=== PATIENT | female | born 1990 | race Caucasian/White ===

== ENCOUNTER 2018-04-12 00:10 | Emergency (ER) | payer OTHER ==
[~2018-04-12] VITALS: Ht 170.2 cm; Wt 77.2 kg
[2018-04-12] MEDS ORDERED: ondansetron/PF 4mg/2ml inj IV ONE (00:45)
[2018-04-12] MEDS ORDERED: normal saline 1000ml 1,000 ML IV ONE ×2 (00:45→01:25)
[2018-04-12] MEDS ORDERED: thiamine 100mg/ml 2ml inj. IV ONE (01:25)
[2018-04-12] MEDS ORDERED: LORazepam 2 mg/ml vial IV ONE (01:25)
[2018-04-12 01:44] LABS: CLARITY,URINE CLOUDY (Clear); COLOR,URINE AMBER (Yellow); GLUCOSE, URINE NEGATIVE (Neg); KETONES,URINE >=80 mg/dl (Neg); LEUKOCYTE ESTERASE ,URINE NEGATIVE (Neg); PH,URINE 6.5 (4.8-8.0); PROTEIN,URINE >=300 mg/dl (Neg)
[2018-04-12 01:45] LABS: URINE HCG NEGATIVE (NEG)
[2018-04-12 01:51] LABS: NITRITES, URINE NEGATIVE (Neg); OCCULT BLOOD,URINE MODERATE (Neg)
[2018-04-12 01:52] LABS: UA COLLECTION TYPE CLN CATCH MIDSTREAM
[2018-04-12 01:59] LABS: ALANINE AMINOTRANSFERASE 109 U/L (12-78); ALBUMIN 3.7 G/DL (3.4-5.0); ALBUMIN/GLOBULIN RATIO 0.9 (1.1-1.5); ALKALINE PHOSPHATASE 117 IU/L (46-116); ANION GAP 18 (8-16); ASPARTATE AMINO TRANSFERASE 106 U/L (10-37); BILIRUBIN,TOTAL 1.2 MG/DL (0.1-1.0); BLOOD UREA NITROGEN 6 MG/DL (7-18); BUN/CREATININE RATIO 6.1 (6.6-38.0); CHLORIDE 107 MMOL/L (99-107); CREATININE 0.99 MG/DL (0.40-0.90); GLUCOSE 152 MG/DL (70-104); POTASSIUM 3.4 MMOL/L (3.5-5.1); SODIUM 145 MMOL/L (135-145); TOTAL CARBON DIOXIDE 19.8 MMOL/L (24-32); TOTAL PROTEIN 7.7 G/DL (6.4-8.2); eGFR 67 ML/MIN
[2018-04-12 02:01] LABS: URINE AMPHETAMINE SCREEN NEGATIVE (Neg); URINE BARBITUATE SCREEN NEGATIVE (Neg); URINE BENZODIAZEPINES SCREEN NEGATIVE (Neg); URINE CANNABINOID SCREEN NEGATIVE (Neg); URINE COCAINE SCREEN NEGATIVE (Neg); URINE METHADONE SCREEN NEGATIVE (Neg); URINE OPIATE SCREEN NEGATIVE (Neg); URINE PHENCYCLIDINE SCREEN NEGATIVE (Neg)
[2018-04-12 02:03] LABS: ETHANOL < 0.010 GM/DL (0.0-0.010)
[2018-04-12 02:05] LABS: BACTERIA,URINE FEW /HPF (Neg); RBC,URINE TNTC /HPF (0-2); SQUAMOUS EPITHELIAL CELL,UR FEW /LPF (FEW); WBC,URINE 0-4 /HPF (0-4)
[2018-04-12 02:08] LABS: BASOPHILS % (AUTO) 0.2 % (0-1); EOSINOPHILS % (AUTO) 0 % (0-6); HEMATOCRIT 50.4 % (35.0-45.0); HEMOGLOBIN 17.3 g/dl (12.0-16.0); LYMPHOCYTES # (AUTO) 0.2 X10'3 (1.1-4.8); LYMPHOCYTES % (AUTO) 2.5 % (21-51); MEAN CORPUSCULAR HEMOGLOBIN 34.7 PG (27.0-31.0); MEAN CORPUSCULAR HGB CONC 34.3 % (33.0-36.5); MEAN CORPUSCULAR VOLUME 101.1 FL (78-98); MEAN PLATELET VOLUME 11.3 FL (7.4-10.4); MONOCYTES # (AUTO) 1.2 X10'3 (0-0.9); MONOCYTES % (AUTO) 13.7 % (2-12); NEUTROPHILS # (AUTO) 7.2 X10'3 (1.8-7.7); NEUTROPHILS % (AUTO) 83.6 % (42-75); PLATELET COUNT 142 X10'3 (140-440); RED BLOOD COUNT 4.99 X10'6 (4.20-5.60); RED CELL DISTRIBUTION WIDTH 13.2 % (11.5-14.5); WHITE BLOOD COUNT 8.7 X10'3 (4.5-11.0)
[2018-04-12] MEDS ORDERED: dextrose 5%-normal saline 1,000 ML IV SCH (02:15)
[2018-04-12] MEDS ORDERED: CHLO25CA10 PO (03:26)
[2018-04-12 03:54] VITALS: BP 109/58
== END 2018-04-12 03:57 | disposition home or self-care (01) ==
LOC: ER 00:13
DX: E87.2 Acidosis (principal); K70.9 Alcoholic liver disease, unspecified; F10.239 Alcohol dependence with withdrawal, unspecified; J45.909 Unspecified asthma, uncomplicated
CPT/HCPCS: 36415; 80053; 80305; 80320; 81001; 81025; 85025; 96361; 96374; 96375; 99284; J2060; J2405; J3411; J7030; J7042; 96365

== ENCOUNTER 2019-04-11 04:59 | Emergency (ER) | payer OTHER ==
[~2019-04-11] VITALS: Ht 170.2 cm; Wt 74.3 kg
[~2019-04-11 04:59] MED LIST: CHLO25CA10 PO
[2019-04-11] MEDS ORDERED: normal saline 1000ML IV soln IVB ONE (05:30)
[2019-04-11 05:43] LABS: URINE HCG NEGATIVE (NEG)
[2019-04-11 05:48] LABS: RED CELL DISTRIBUTION WIDTH 15.5 % (11.5-14.5)
[2019-04-11 05:49] LABS: EOSINOPHILS # (AUTO) 0.1 X10'3 (0-0.9)
[2019-04-11 05:52] LABS: HEMOGLOBIN 17.9 g/dl (12.0-16.0); MONOCYTES # (AUTO) 1.1 X10'3 (0-0.9); MONOCYTES % (AUTO) 11.3 % (2-12)
[2019-04-11 05:53] LABS: CLARITY,URINE CLOUDY (Clear); COLOR,URINE YELLOW (Yellow); GLUCOSE, URINE NEGATIVE (Neg); KETONES,URINE NEGATIVE (Neg); LEUKOCYTE ESTERASE ,URINE NEGATIVE (Neg); OCCULT BLOOD,URINE MODERATE (Neg); PH,URINE 5.5 (4.8-8.0); PROTEIN,URINE TRACE mg/dl (Neg)
[2019-04-11 05:54] LABS: BASOPHILS % (AUTO) 0.4 % (0-1); EOSINOPHILS % (AUTO) 1.5 % (0-6); HEMATOCRIT 51.8 % (35.0-45.0); LYMPHOCYTES # (AUTO) 0.9 X10'3 (1.1-4.8); LYMPHOCYTES % (AUTO) 9.5 % (21-51); MEAN CORPUSCULAR HEMOGLOBIN 37.1 PG (27.0-31.0); MEAN CORPUSCULAR HGB CONC 34.5 g/dL (33.0-36.5); MEAN CORPUSCULAR VOLUME 107.8 FL (78-98); MEAN PLATELET VOLUME 10.2 FL (7.4-10.4); NEUTROPHILS # (AUTO) 7.6 X10'3 (1.8-7.7); NEUTROPHILS % (AUTO) 77.3 % (42-75); PLATELET COUNT 210 X10'3 (140-440); RED BLOOD COUNT 4.81 X10'6 (4.20-5.60); WHITE BLOOD COUNT 9.9 X10'3 (4.5-11.0)
[2019-04-11 05:59] LABS: ALANINE AMINOTRANSFERASE 192 U/L (12-78); ALBUMIN 3.6 G/DL (3.4-5.0); ALBUMIN/GLOBULIN RATIO 0.9 (1.1-1.5); ALKALINE PHOSPHATASE 138 IU/L (46-116); ANION GAP 11 (8-16); ASPARTATE AMINO TRANSFERASE 316 U/L (10-37); BILIRUBIN,TOTAL 1.1 MG/DL (0.1-1.0); BLOOD UREA NITROGEN 8 MG/DL (7-18); CALCIUM 9.9 MG/DL (8.5-10.1); CHLORIDE 101 MMOL/L (99-107); CREATININE 0.73 MG/DL (0.40-0.90); GLUCOSE 109 MG/DL (70-104); LIPASE 269 U/L (73-393); POTASSIUM 3.7 MMOL/L (3.5-5.1); SODIUM 136 MMOL/L (135-145); TOTAL PROTEIN 7.8 G/DL (6.4-8.2); eGFR > 90 ML/MIN
[2019-04-11 06:01] LABS: UA COLLECTION TYPE CLN CATCH MIDSTREAM
[2019-04-11 06:02] LABS: NITRITES, URINE NEGATIVE (Neg)
[2019-04-11 06:03] LABS: AMORPHOUS URATES 4+; BACTERIA,URINE FEW /HPF (Neg); RBC,URINE 0-2 /HPF (0-2); SQUAMOUS EPITHELIAL CELL,UR FEW /LPF (FEW); URIC ACID CRYSTALS FEW /HPF (NEGATIVE); WBC,URINE NONE SEEN /HPF (0-4)
[2019-04-11 06:09] LABS: INR 1.1 INR
--- NOTE | 2019-04-11 06:30 | NUR ---
PT DENIES NAUSEA
--- NOTE | 2019-04-11 06:45 | NUR ---
REQUESTED ADDITIONAL URINE SPECIMAN
[2019-04-11] MEDS ORDERED: PHEN-716 PO (06:48)
[2019-04-11 07:01] VITALS: BP 147/92
== END 2019-04-11 07:08 | disposition home or self-care (01) ==
LOC: ER 05:00
DX: R10.30 Lower abdominal pain, unspecified (principal); E86.0 Dehydration; R74.0 Nonspecific elevation of levels of transaminase and lactic acid dehydrogenase [LDH]; R30.0 Dysuria; R11.10 Vomiting, unspecified; J45.909 Unspecified asthma, uncomplicated; Z79.899 Other long term (current) drug therapy
CPT/HCPCS: 36415; 80053; 81001; 81025; 83690; 85025; 85610; 87491; 87591; 99283; J7030

== ENCOUNTER 2019-04-19 23:03 | Emergency (ER) | payer MEDICAID, OTHER ==
[~2019-04-19] VITALS: Ht 170.2 cm; Wt 74.0 kg
[~2019-04-19 23:03] MED LIST changes: +PHEN-716 PO
[2019-04-19] MEDS ORDERED: LORazepam 2 mg/ml vial IV ONE (23:25)
[2019-04-19] MEDS ORDERED: normal saline 1000ML IV soln IVB ONE (23:25)
[2019-04-19 23:44] LABS: BASOPHILS # (AUTO) 0.1 X10'3 (0-0.2); BASOPHILS % (AUTO) 1.1 % (0-1); EOSINOPHILS # (AUTO) 0.1 X10'3 (0-0.9); EOSINOPHILS % (AUTO) 1.5 % (0-6); HEMATOCRIT 48.4 % (35.0-45.0); HEMOGLOBIN 16.6 g/dl (12.0-16.0); LYMPHOCYTES # (AUTO) 1.3 X10'3 (1.1-4.8); LYMPHOCYTES % (AUTO) 16.6 % (21-51); MEAN CORPUSCULAR HEMOGLOBIN 36.8 PG (27.0-31.0); MEAN CORPUSCULAR HGB CONC 34.3 g/dL (33.0-36.5); MEAN CORPUSCULAR VOLUME 107.3 FL (78-98); MEAN PLATELET VOLUME 9.7 FL (7.4-10.4); MONOCYTES # (AUTO) 1.2 X10'3 (0-0.9); MONOCYTES % (AUTO) 14.7 % (2-12); NEUTROPHILS # (AUTO) 5.2 X10'3 (1.8-7.7); NEUTROPHILS % (AUTO) 66.1 % (42-75); PLATELET COUNT 222 X10'3 (140-440); RED BLOOD COUNT 4.51 X10'6 (4.20-5.60); RED CELL DISTRIBUTION WIDTH 15.4 % (11.5-14.5); WHITE BLOOD COUNT 7.9 X10'3 (4.5-11.0)
[2019-04-20 00:12] LABS: CALCIUM 10.3 MG/DL (8.5-10.1)
[2019-04-20 00:22] LABS: ALBUMIN 3.6 G/DL (3.4-5.0); ALBUMIN/GLOBULIN RATIO 0.9 (1.1-1.5); ANION GAP 14 (8-16); BILIRUBIN,TOTAL 0.8 MG/DL (0.1-1.0); BLOOD UREA NITROGEN 6 MG/DL (7-18); BUN/CREATININE RATIO 8.6 (6.6-38.0); CHLORIDE 99 MMOL/L (99-107); GLUCOSE 96 MG/DL (70-104); POTASSIUM 3.7 MMOL/L (3.5-5.1); SODIUM 136 MMOL/L (135-145); TOTAL CARBON DIOXIDE 22.6 MMOL/L (24-32); TOTAL PROTEIN 7.6 G/DL (6.4-8.2); eGFR > 90 ML/MIN
[2019-04-20 00:23] LABS: ALANINE AMINOTRANSFERASE 102 U/L (12-78); ALKALINE PHOSPHATASE 109 IU/L (46-116); ASPARTATE AMINO TRANSFERASE 119 U/L (10-37); LIPASE 145 U/L (73-393)
[2019-04-20 00:34] VITALS: BP 138/84
[2019-04-20] MEDS ORDERED: ONDA4TAB6 PO (00:35)
== END 2019-04-20 01:27 | disposition home or self-care (01) ==
LOC: ER 23:04
DX: K92.0 Hematemesis (principal); F10.20 Alcohol dependence, uncomplicated; R20.0 Anesthesia of skin; J45.909 Unspecified asthma, uncomplicated
CPT/HCPCS: 36415; 80053; 83690; 85025; 96361; 96374; 99283; J2060; J7030

== ENCOUNTER 2021-04-27 10:01 | Emergency (ER) | payer MEDICAID ==
[~2021-04-27] VITALS: Ht 170.2 cm; Wt 81.8 kg
[~2021-04-27 10:01] MED LIST changes: +ONDA4TAB6 PO
[2021-04-27] MEDS ORDERED: ondansetron/PF 4mg/2ml inj IV ONE ×2 (10:50→13:55)
[2021-04-27] MEDS ORDERED: thiamine 100mg tablet PO ONE (10:50)
[2021-04-27] MEDS ORDERED: phenobarbital inj 260 MG in normal saline 100ml IV soln 100 ML IV ONE (10:50)
[2021-04-27] MEDS ORDERED: magnesium oxide 400mg tablet PO ONE (10:50)
[2021-04-27] MEDS ORDERED: normal saline 1000ML IV soln IVB ONE (10:50)
[2021-04-27 11:16] LABS: BASOPHILS % (AUTO) 0.4 % (0-1); EOSINOPHILS # (AUTO) 0.1 X10'3 (0-0.9); EOSINOPHILS % (AUTO) 0.9 % (0-6); HEMATOCRIT 34.4 % (35.0-45.0); HEMOGLOBIN 10.9 g/dl (12.0-16.0); LYMPHOCYTES # (AUTO) 2.2 X10'3 (1.1-4.8); LYMPHOCYTES % (AUTO) 17.9 % (21-51); MEAN CORPUSCULAR HEMOGLOBIN 26.1 PG (27.0-31.0); MEAN CORPUSCULAR HGB CONC 31.8 g/dL (33.0-36.5); MEAN PLATELET VOLUME 8.6 FL (7.4-10.4); MONOCYTES # (AUTO) 1.6 X10'3 (0-0.9); MONOCYTES % (AUTO) 12.8 % (2-12); NEUTROPHILS # (AUTO) 8.5 X10'3 (1.8-7.7); PLATELET COUNT 270 X10'3 (140-440); RED BLOOD COUNT 4.19 X10'6 (4.20-5.60); RED CELL DISTRIBUTION WIDTH 20.5 % (11.5-14.5); WHITE BLOOD COUNT 12.5 X10'3 (4.5-11.0)
[2021-04-27 11:34] LABS: ALANINE AMINOTRANSFERASE 71 U/L (12-78); ALBUMIN 3.7 G/DL (3.4-5.0); ALBUMIN/GLOBULIN RATIO 0.8 (1.1-1.5); ALKALINE PHOSPHATASE 159 IU/L (46-116); ANION GAP 21 (8-16); ASPARTATE AMINO TRANSFERASE 211 U/L (10-37); BILIRUBIN,TOTAL 0.4 MG/DL (0.1-1.0); CALCIUM 8.8 MG/DL (8.5-10.1); CHLORIDE 101 MMOL/L (99-107); ETHANOL 0.121 GM/DL (0.0-0.010); GLUCOSE 125 MG/DL (70-104); MAGNESIUM 1.8 MG/DL (1.5-2.4); POTASSIUM 3.6 MMOL/L (3.5-5.1); SODIUM 141 MMOL/L (135-145); TOTAL CARBON DIOXIDE 19.5 MMOL/L (24-32); TOTAL PROTEIN 8.4 G/DL (6.4-8.2)
[2021-04-27 12:03] LABS: BLOOD UREA NITROGEN 3 MG/DL (7-18); BUN/CREATININE RATIO 4.2 (6.6-38.0); CREATININE 0.71 MG/DL (0.40-0.90); eGFR > 90 ML/MIN
[2021-04-27] MEDS ORDERED: phenobarbital inj 130 MG in normal saline 100ml IV soln 100 ML IV ONE (12:20)
[2021-04-27 14:25] VITALS: BP 114/87
== END 2021-04-27 14:26 | disposition home or self-care (01) ==
LOC: ER 10:01
DX: F10.230 Alcohol dependence with withdrawal, uncomplicated (principal); J45.909 Unspecified asthma, uncomplicated; Y90.9 Presence of alcohol in blood, level not specified
CPT/HCPCS: 80053; 80320; 83735; 85025; 93005; 96365; 96375; 96376; 99284; J2405; J2560; J7030

== ENCOUNTER 2024-10-27 08:31 | Outpatient (CLI) | payer BC | END 2024-10-27 23:59 | disposition home or self-care (01) | LOC: US 08:31 | PROVIDERS: ATTEND Nurse Practitioner Family | DX: K76.89 Other specified diseases of liver (principal); F10.11 Alcohol abuse, in remission; Z90.49 Acquired absence of other specified parts of digestive tract; Z87.19 Personal history of other diseases of the digestive system | CPT/HCPCS: 76700 ==

== ENCOUNTER 2025-09-06 05:12 | Emergency (ER) | payer BC ==
[~2025-09-06] VITALS: Ht 170.2 cm; Wt 64.5 kg
[2025-09-06 05:16] VITALS: TEMP 97.7
[2025-09-06 05:59] LABS: MEAN PLATELET VOLUME 10.2 FL (7.4-10.4); RED CELL DISTRIBUTION WIDTH 13.3 % (11.5-14.5)
--- NOTE | 2025-09-06 06:02 | Physician Documentation ---
History of Present Illness ~ Chief Complaint: Diarrhea Stated Complaint: DIARRHEA Time Seen by MD: 05:35 Primary Medical Doctor: none Source: patient Mode of Arrival: POV, Ambulatory Exam Limitations: no limitations HPI Chief Complaint: Diarrhea Caveat: None Independent Historians: History of Present Illness: Patient is a 35-year-old woman who comes in complaining of diarrhea nonstop for three days. Patient is having multiple episodes of diarrhea a day. It is watery, brown. No fever. Patient had some nausea yesterday. No vomiting. Patient has had shaking chills. No recent travel. No known sick contacts. Patient's CAT has also had diarrhea. Review of systems: All systems were reviewed and are negative except for what is indicated in the history of present illness. 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, sober for four years Medications: Reviewed as documented Nursing Notes Allergies: Reviewed as documented in Nursing Notes Medication Reconciliation Allergies: Coded Allergies: No Known Allergies (Unverified , 04/12/18) Scheduled Ondansetron Hcl (Zofran), 1 TAB PO Q8H Phenazopyridine HCl (Pyridium), 1 TAB PO Q8H Scheduled PRN Chlordiazepoxide Hcl (Librium), 25 MG PO Q8HPRN PRN for alcohol withdrawal Past Medical History Past Medical History: Asthma Past Surgical History: noncontributory Alcohol Use: Alcoholic Drug Use: none Lives In: Home Review of Systems All Other Systems at this time: Reviewed and Negative ROS Patient denies any other acute symptoms other than above. All other systems are negative Physical Exam Vital Signs: RN Vital Signs have been reviewed: Yes, Temperature: 97.7, Source: Oral, Heart Rate: 91, Respiratory Rate: 14, BP: 121/64, Pulse Oximetry: 99, Weight: 64.550 Oxygen Flow Rate: 0 Pulse Oximetry Reflects: adequate oxygenation Physical Exam General Appearance: Mild distress HEENT: Normal OP, moist oral mucosa, PERRL, EOMI Neck: supple, normal ROM, trachea midline Pulmonary: No respiratory distress, CTA, BS equal Cardiac: RRR, no murmur, rub or gallop, GI: nondistended, soft, nontender, normal bowel sounds, no guarding, no rebound Extremities: normal ROM, no swelling, non-tender Skin: intact, dry, warm, no rashes Neuro: AAOx3, speech is clear, no focal motor weakness Psych: normal affect, good eye contact, no apparent hallucination, normal speech Progress Results/Orders Results/Orders Orders - NATALIA LONG MD Cult Stool (Enteric Pathogens) (09/06/25 05:58) Wrights Stain For Stool Wbcs (09/06/25 05:58) Completed Orders - NATALIA LONG MD Urinalysis, Cult If Indicated (09/06/25 05:21) Hcg, Ur Ql (09/06/25 05:21) Cbc/Diff (09/06/25 05:21) Lipase (09/06/25 05:21) CMP (09/06/25 05:21) Ringers Solution, Lacted (Lactated Ringe (09/06/25 06:00) C Diff Toxin (09/06/25 05:58) MG (09/06/25 05:48) Man Diff (09/06/25 05:48) Potassium Cl 20meq In D5-1/2ns (Kcl 20 M (09/06/25 07:25) Potassium Cl Sr Tablet (K-Dur Tablet) (09/06/25 07:43) Medications Received in ER Medications (Trade) Dose Ordered Sig/Gema Route PRN Reason Start Time Stop Time Status Last Admin Dose Admin (lactated ringers solution) 2,000 ml ONCE ONCE IV 09/06/25 06:00 09/06/25 06:01 DC 09/06/25 06:05 2,000 ML (K-DUR tablet) 40 meq ONCE STAT PO 09/06/25 07:43 09/06/25 07:45 DC 09/06/25 08:08 40 MEQ Vital Signs 09/06/25 09/06/25 09/06/25 09/06/25 05:16 05:53 06:18 08:41 Temp 97.7 Pulse 91 78 84 Resp 16 14 16 16 B/P (MAP) 121/64 109/74 (86) 102/66 Pulse Ox 99 100 99 O2 Flow Rate 0 0 Laboratory Tests Test 09/06/25 05:48 09/06/25 06:36 White Blood Count 6.7 Red Blood Count 4.97 Hemoglobin 15.1 Hematocrit 44.3 Mean Corpuscular Volume 89.1 Mean Corpuscular Hemoglobin 30.3 Mean Corpuscular Hemoglobin Concent 34.0 Red Cell Distribution Width 13.3 Platelet Count 200 Mean Platelet Volume 10.2 Neutrophils (%) (Auto) 71.3 Lymphocytes (%) (Auto) 10.2 L Monocytes (%) (Auto) 16.3 H Eosinophils (%) (Auto) 1.8 Basophils (%) (Auto) 0.4 Neutrophils # (Auto) 4.8 Lymphocytes # (Auto) 0.7 L Monocytes # (Auto) 1.1 H Eosinophils # (Auto) 0.1 Basophils # (Auto) 0.0 CBC Comment Differential Total Cells Counted 100 Neutrophils % (Manual) 70.0 Lymphocytes % (Manual) 14.0 L Monocytes % (Manual) 16.0 H Platelet Estimate Normal Red Blood Cell Morphology Normal Basophilic Stippling Sodium Level 139 Potassium Level 3.1 L Chloride Level 106 Carbon Dioxide Level 22.8 L Anion Gap 10 Blood Urea Nitrogen 7 Creatinine 0.82 Estimated GFR/1.73 m2 79 BUN/Creatinine Ratio 8.5 L Glucose Level 81 Calcium Level 8.5 Magnesium Level 1.8 Total Bilirubin 0.2 Aspartate Amino Transf (AST/SGOT) 24 Alanine Aminotransferase (ALT/SGPT) 32 Alkaline Phosphatase 47 Total Protein 7.8 Albumin 3.8 Globulin 4.0 Albumin/Globulin Ratio 1.0 L Lipase 21 Chemistry Comments Urine Specimen Description Cln catch midstream Urine Color Yellow Urine Clarity Clear Urine pH 6.0 Urine Specific [place] <=1.005 Urine Protein Negative Urine Glucose (UA) Negative Urine Ketones Negative Urine Occult Blood Negative Urine Nitrite Negative Urine Bilirubin Negative Urine Urobilinogen 0.2 Urine Leukocyte Esterase Negative Urine Culture Indicated Not ind Volume Urine Centrifuged 10 ml Urine HCG, Qualitative Negative Urine Comment Clostridium Difficile Toxin A & B Negative Clostridium difficile Antigen Negative Microbiology Date/Time Source Procedure Growth Status 09/06/25 06:36 Stool WBC Smear - Final Resulted 09/06/25 06:36 Stool Stool Culture Pending Resulted Medical Decision Making Additional info obtained from: old records Findings Differential diagnosis includes but is not limited to: Viral enteritis, bacterial enteritis, C diff colitis, Giardia, dehydration, electrolyte abnormalities Laboratory data independent interpretation: CBC: Unremarkable, differential shows low lymphocytes 14% and high monocytes 16%. CMP: Hypokalemia with a potassium of 3.1, bicarb is mildly low at 22.8 Urine : Negative Urinalysis: Unremarkable Lee Stain: Negative for white blood cells C diff toxin: Negative Emergency department course/medical decision-making: Patient is a 35-year-old woman who comes in with severe persistent diarrhea for three days. Cause is unknown. Lee's stain is negative for white blood cells. C diff is pending. Patient is given 2 L of LR. Patient is also mildly hypokalemic. Patient is given 40 mEq p.o.. Patient did not want the IV potassium. Patient is feeling a little better and just fatigued. It is safe for the patient to try to continue the Imodium test results and treatment plan reviewed with the patient. Patient was mildly dehydrated. No evidence of a medical or surgical emergency at this time. Patient is stable for discharge. C diff is pending if it is positive she will be called and started on vancomycin. C diff toxin is negative. Diff Dx GI Bleed:Consideration: Include: Other (See above) Diff Dx Pain:Considerations: Include: Other (See above) Diff Dx N/V/D:Considerations: Include: Other Diff Dx Rectal:Considerations: Include: Other (See above) Departure Time of Disposition: 08:34 Disposition: 01 HOME / SELF CARE / HOMELESS Impression: Primary Impression: Diarrhea Qualified Codes: R19.7 - Diarrhea, unspecified Additional Impressions: Dehydration Hypokalemia Condition: Improved Discharge Instructions: Dehydration, Adult, [id number], Diarrhea, Adult, Hypokalemia Additional Instructions: RETURN TO THE ER IF YOUR SYMPTOMS WORSEN. Education Educated: Patient Educated regarding: diagnosis, treatment, need for follow up Signature Scribe Signature: No scribe Attestation: No scribe NATALIA LONG MD Sep 06, 2025 06:02
[2025-09-06] MEDS: ringers solution, lactated 1000ml IV soln IV ONE (06:05)
[2025-09-06 06:12] LABS: CREATININE 0.82 MG/DL (0.40-0.90); TOTAL CARBON DIOXIDE 22.8 MMOL/L (24-32); eCRCL 93 ML/MIN; eGFR 79 ML/MIN
[2025-09-06 06:45] LABS: LEUKOCYTE ESTERASE ,URINE NEGATIVE (Neg); NITRITES, URINE NEGATIVE (Neg); OCCULT BLOOD,URINE NEGATIVE (Neg)
[2025-09-06 06:57] LABS: URINE HCG NEGATIVE (NEG)
[2025-09-06 07:06] LABS: UA COLLECTION TYPE CLN CATCH MIDSTREAM
[2025-09-06] MEDS ORDERED: D5-1/2NS w/20 mEq potassium per 1000ml IV ONE (07:10)
[2025-09-06] MEDS ORDERED: potassium CL 20mEq in D5-1/2NS 1,000 ML IV ONE (07:25)
[2025-09-06 07:56] LABS: LYMPHOCYTES % (MANUAL) 14.0 % (21-51); MONOCYTES % (MANUAL) 16.0 % (2-12); NEUTROPHILS % (MANUAL) 70.0 % (42-75); PLATELET ESTIMATE NORMAL
[2025-09-06] MEDS: potassium Cl 20 mEq SR tablet PO STA (08:08)
[2025-09-06 08:41] VITALS: BP 102/66; PULSE 84; RESP 16; O2SAT 99
[2025-09-06 09:03] LABS: C DIFF SPECIMEN=DIARRHEA? ACCEPTABLE; C DIFFICILE TOXINS A&B NEGATIVE (Neg)
[2025-09-06 09:04] LABS: C DIFF ANTIGEN NEGATIVE (NEGATIVE)
== END 2025-09-06 08:43 | disposition home or self-care (01) ==
LOC: ER 05:12
DX: R19.7 Diarrhea, unspecified (principal); E86.0 Dehydration; E87.6 Hypokalemia; J45.909 Unspecified asthma, uncomplicated; G62.9 Polyneuropathy, unspecified
CPT/HCPCS: 80053; 81003; 81025; 83690; 83735; 85007; 85025; 87045; 87046; 87324; 87449; 89055; 96360; 99283; J7120